=== PATIENT | female | born 1975 | race African-American/Black ===

== ENCOUNTER 2018-02-12 21:02 | Emergency (ER) | payer OTHER ==
[~2018-02-12] VITALS: Ht 165.1 cm; Wt 70.3 kg
[~2018-02-12 21:02] MED LIST: BUPROPION XL150 MG PO; COLACE100 MG PO; DIVALPROEX SOD250 MG PO; ZOLPIDEM TARTRA10 MG PO
[2018-02-12 23:01] VITALS: BP 146/95
== END 2018-02-12 23:03 | disposition home or self-care (01) ==
LOC: EME 21:02
DX: F32.9 Major depressive disorder, single episode, unspecified (principal); E03.9 Hypothyroidism, unspecified; F31.9 Bipolar disorder, unspecified; F17.200 Nicotine dependence, unspecified, uncomplicated; Z91.5 Personal history of self-harm; J30.2 Other seasonal allergic rhinitis
CPT/HCPCS: 90832; 99281; 99284